=== PATIENT | female | born 1955 | race Hispanic/Latino ===

== ENCOUNTER 2019-02-26 13:54 | Emergency (ER) | payer OTHER, MEDICAID, SELFPAY ==
[2019-02-26 13:58] VITALS: BP 156/98; PULSE 106; RESP 18; O2SAT 100; BMI 35.3
--- NOTE | 2019-02-26 19:41 | ED.SKABFB ---
HPI - Skin/Abscess/Foreign Bdy General Chief complaint: Skin/Abscess/Foreign Body Stated complaint: LEFT ARM SWELLING BEE STING Time Seen by Provider: 02/26/19 13:55 Source: patient Mode of arrival: ambulatory Limitations: no limitations History of Present Illness HPI narrative: 63-year-old female nonsmoker is otherwise healthy and presents with a chief complaint of left forearm swelling and redness in the aftermath of a bee sting a day and a half ago. He her symptoms are completely isolated to the left forearm. She denies any systemic complaints such is trouble breathing or swallowing nor tongue or lip swelling. She has had no fever or chills. She denies any history of significant allergic reaction past. She has taken 1 dose of Benadryl without much in the way of help including topical Benadryl complaint: rash Onset (ago): day(s) Tetanus up to date: no Location: LUE Severity: mild Relieving factors: none Exacerbating factors: none Related Data Home Medications Medication Instructions Recorded Confirmed diphenhydramine HCl [Benadryl 25 mg PO Q6HP PRN #0 03/15/17 Allergy] Previous Rx's Medication Instructions Recorded prednisone 20 mg PO DAILY #5 tab 02/26/19 Allergies Allergy/AdvReac Type Severity Reaction Status Date / Time adhesive Allergy Mild RASH Verified 02/26/19 14:02 tetracycline Allergy Mild RASH Verified 02/26/19 14:02 Review of Systems Constitutional Denies chills, Denies fever(s), Denies lethargy and Denies weakness Eyes Denies change in vision, Denies eye discharge, Denies irritation and Denies loss of vision ENT Ears, Nose, Mouth, and Throat: Denies change in voice, Denies neck pain and Denies sore throat Cardiovascular Denies chest pain, Denies irregular heart rhythm, Denies lightheadedness, Denies palpitations, Denies dyspnea, Denies dyspnea on exertion and Denies orthopnea Respiratory Denies cough, Denies dyspnea, Denies dyspnea on exertion and Denies wheezing Gastrointestinal Gastrointestinal: Denies abdominal pain, Denies change in bowel habits, Denies diarrhea, Denies nausea and Denies vomiting Genitourinary Denies hematuria, Denies flank pain, Denies urinary incontinence and Denies urinary urgency Musculoskeletal Denies neck pain Integumentary/Breasts Denies pruritus, Reports erythema, Reports rash, Reports skin swelling and Denies wounds Neurologic Denies confusion, Denies loss of vision and Denies weakness Psychiatric Denies anxiety, Denies confusion, Denies depression, Denies homicidal ideation and Denies suicidal ideation Endocrine Denies palpitations Hematologic/Lymphatic Denies easy bruising Allergic/Immunologic Denies wheezing PFSH Social History Smoking Status: Never smoker Social History Smoking Status: Never smoker Exam Narrative Exam Narrative: GEN: AOx3 and in mild distress EYES: Pupils are equal, round, and reactive to light and accommodation. Extraoccular muscles are intact bilaterally. There is no subconjunctival hemorrhage or exudate. ENT: No tongue lip or throat swelling, airway patent CHEST: Lungs are clear to auscultation bilaterally and free of wheezes, rales, or rhonchi. Heart rate is regular rhythm, there are no murmurs, clicks, rubs, or gallops. There is no chest wall tenderness. ABD: Abdomen is soft and nontender. There is no guarding or rebound. Bowel sounds are normal in all 4 quadrants. There is no mass or organomegaly. EXT: Full painless ROM of all extremities with no loss of sensation or strength. SKIN: Erythema and warmth to left forearm without lymphangitis induration or fluctuance. Initial Vital Signs Initial Vital Signs: Vital Signs Pulse Rate 106 H 02/26/19 13:58 Respiratory Rate 18 02/26/19 13:58 Blood Pressure 156/98 H 02/26/19 13:58 Pulse Oximetry 100 02/26/19 13:58 Course Vital Signs - 8 hr 02/26/19 13:58 Pulse Rate 106 H Respiratory Rate 18 Blood Pressure 156/98 H Pulse Oximetry 100 MDM - Skin/Abscess/Foreign Bdy MDM Narrative Medical decision making narrative: Patient with localized allergic reaction after bee sting. No airway compromise or other systemic findings. Very minimal attempts at [id number] therapies prior to arrival. Cellulitis considered but thought less likely given presentation. Patient given return precautions and her understanding is evidenced by her ability to verbalize these back. She has had her questions answered to her apparent satisfaction Discharge Plan Departure Patient Disposition: Home Clinical Impression: Insect bite of arm, left Qualifiers: Encounter type: initial encounter Qualified Code(s): S40.862A - Insect bite (nonvenomous) of left upper arm, initial encounter Discharge Date/Time: 02/26/19 14:17 Interventions: ED Discharge Assessment Last Done: 02/26/19 14:17 Instructions: DI for Insect Allergy Activity Restrictions/Additional Instructions: *You have been diagnosed with [acute local allergic reaction to insect bite] *What to do: *Take medications as directed: Please take generic Zyrtec (cetirizine) 10 mg by mouth twice daily, please note this is different than what the side of the box will say. Additionally consider the addition of histamine type 2 flynn such as Pepcid or Zantac (to be taken as directed on the side of the box). Finally I have written a prescription for prednisone *Follow up with your primary care provider in 2-3 days, call for an appointment. Let them know you were seen in the Emergency Department and that we ask that you be seen in follow up *Return to ER if you should have any new, worsening or concerning symptoms, such as [swelling of the tongue, lips or throat, difficulty breathing or other bothersome symptoms] Prescriptions: New prednisone 20 mg tablet 20 mg PO DAILY Qty: 5 RF: 0 No Action diphenhydramine HCl [Benadryl Allergy] 25 MG tablet 25 mg PO Q6HP PRNQty: 0 RF: 0
== END 2019-02-26 14:17 | disposition home or self-care (01) ==
PROVIDERS: Emergency Provider Emergency Medicine
DX: T63.441A Toxic effect of venom of bees, accidental (unintentional), initial encounter (principal)
CPT/HCPCS: 99282; 99283

== ENCOUNTER → 2022-04-08 14:10 | Outpatient (CLI) | payer OTHER, MEDICAID, SELFPAY | PROVIDERS: Referring Provider Nurse Practitioner Family; Visit Provider Nurse Practitioner Family | DX: T22.211A Burn of second degree of right forearm, initial encounter (principal) | CPT/HCPCS: 99203; 99213 ==

== ENCOUNTER → 2022-04-22 10:36 | Outpatient (CLI) | payer OTHER, MEDICAID, SELFPAY | PROVIDERS: Referring Provider Nurse Practitioner Family; Visit Provider Nurse Practitioner Family | DX: T22.211D Burn of second degree of right forearm, subsequent encounter (principal) | CPT/HCPCS: 99213 ==

== ENCOUNTER 2022-08-09 14:59 | Emergency (ER) | payer MEDICARE, MEDICAID, SELFPAY ==
[2022-08-09 15:02] VITALS: BP 199/86; PULSE 103; RESP 15; TEMP 36.4; O2SAT 100; BMI 30.9
--- NOTE | 2022-08-09 17:15 | DI.US.S_ITS ---
PROCEDURE: US BREAST LT LIMITED COMPARISON: None. INDICATIONS: QUARTER SIZED RED AREA - BLEEDING AT SIZE. LEFT LATERAL OUTER QUADRANT FINDINGS: Targeted ultrasound of the left breast 4:00 7 cm from the nipple. Just deep to the skin is an oval-shaped heterogeneous hypoechoic mass measuring 1 x 0.9 x 0.2 cm. There is suspected internal blood flow. No posterior acoustic features. Margins are smooth. Prominent left axillary lymph node with a preserved fatty hilum and no cortical thickening. IMPRESSION: Left breast superficial mass measuring 1 cm. There appears to be internal vascularity. This could represent a sebaceous cyst or skin lesion. Recommend clinical correlation. Recommend left breast mammogram. Short-term follow-up left breast ultrasound is also recommended. If the abnormality persists ultrasound-guided biopsy may be needed. Prominent left axillary lymph node without cortical thickening. This is typically benign. Preliminary results discussed with Dr. Covarrubias at time of dictation. Dictated by: Rosales De Luna M.D. on 08/09/2022 at 18:46 Approved by: Rosales De Luna M.D. on 08/09/2022 at 18:54
[2022-08-09 18:56] VITALS: BP 174/73; PULSE 96; O2SAT 100
--- NOTE | 2022-08-09 19:30 | ED.SKABFB ---
HPI - Skin/Abscess/Foreign Bdy General Chief complaint: Skin/Abscess/Foreign Body Stated complaint: cyst on lt breast, pt wants an ultrasound Time Seen by Provider: 08/09/22 17:15 Source: patient Mode of arrival: Ambulatory Limitations: no limitations History of Present Illness HPI narrative: 67-year-old female nonsmoker with history of breast cancer presents at the request of the walk-in clinic for evaluation of a cyst on her left breast, requesting ultrasound. She states that for about the past 11 days she has had this lesion on the left lower breast a few cm across that has been tender. She does have a history of breast cancer and for that reason is concerned. She was fany enough earlier today to establish a new intake appointment with a local primary care provider tomorrow. She denies any headache or blurred vision and has no chest pain or shortness of breath. She denies any nausea, vomiting or diarrhea and has no nipple discharge or drainage. Related Data Previous Rx's Medication Instructions Recorded mupirocin 2 % topical ointment 1 applic topical TID #15 grams 04/04/22 mupirocin 2 % topical ointment 1 applic topical TID #15 grams 04/04/22 Allergies Allergy/AdvReac Type Severity Reaction Status Date / Time adhesive Allergy Mild RASH Verified 08/09/22 15:02 tetracycline Allergy Mild RASH Verified 08/09/22 15:02 Review of Systems Review of Systems Narrative: GENERAL: Denies chills, fatigue, malaise, fever, sweats. HEENT: Denies sinus pain, ear pain, sore throat, difficulty swallowing, dizziness. RESPIRATORY: Denies dyspnea, cough, wheezing, hemoptysis, sputum. CARDIOVASCULAR: Denies chest pain, palpitations, orthopnea, edema, GASTROINTESTINAL: Denies nausea, vomiting, abdominal pain, diarrhea, constipation, melena. : Denies dysuria, frequency, incontinence, hematuria, urinary retention. MUSCULOSKELETAL: denies weakness, joint pain, or bony pain SKIN: See HPI NEUROLOGIC: Denies weakness, headache, numbness, change in speech, confusion, seizures, incoordination. PSYCHIATRIC: No concerning psychosocial issues. 12 point review of systems is negative except for those stated above Patient History Social History Smoking Status: Never smoker Smoking Status: Never smoker alcohol intake frequency: holidays/special occasions only Substance Use Type: does not use Exam Narrative Exam Narrative: GEN: AOx3 and in mild distress EYES: Pupils are equal, round, and reactive to light and accommodation. Extraoccular muscles are intact bilaterally. There is no subconjunctival hemorrhage or exudate. CHEST: Left breast examined with patient's permission and female nurse [employer] sales consultant at the bedside. There is a 1.5 cm erythematous lesion at the 4 o'clock position on her breast with a very small area that appears to be perhaps ulcerated, no fluctuance or induration, no nipple discharge, no other painful masses in other quadrants. Lungs are clear to auscultation bilaterally and free of wheezes, rales, or rhonchi. Heart rate is regular rhythm, there are no murmurs, clicks, rubs, or gallops. There is no chest wall tenderness. ABD: Abdomen is soft and nontender. There is no guarding or rebound. Bowel sounds are normal in all 4 quadrants. There is no mass or organomegaly. EXT: Full painless ROM of all extremities with no loss of sensation or strength. SKIN: Warm, pink, and dry. No erythema or rash Initial Vital Signs Initial Vital Signs: Vital Signs Temperature 97.5 F L 08/09/22 15:02 Pulse Rate 103 H 08/09/22 15:02 Respiratory Rate 15 08/09/22 15:02 Blood Pressure 199/86 H 08/09/22 15:02 Pulse Oximetry 100 08/09/22 15:02 Oxygen Delivery Method 08/09/22 15:02 Course Orders Ordered: ED Orders 08/09/22 17:15 US breast LT limited Stat Vital Signs Vital signs: Vital Signs - 8 hr 08/09/22 15:02 08/09/22 18:56 Temperature 97.5 F L Pulse Rate 103 H 96 H Respiratory Rate 15 Blood Pressure 199/86 H 174/73 H Pulse Oximetry 100 100 Oxygen Delivery Method Room Air Room Air MDM - Skin/Abscess/Foreign Bdy Imaging Data Breast US: Radiologist's Impression: Fany Encinas??67??F??1955 ? Allergy/Adv: adhesive, tetracycline (More??) Close Breast Ultrasound (Signed) CallRosales - 08/09/22 Launch?Image [address] [address] Ultrasound Report Signed Patient: Fany Encinas MR#: [id number] : 1955 Acct:[id number] Age/Sex: 67 / F Date of Service: 08/09/22 Loc: ED Accession Number: [id number] ?? Procedure: US breast LT limited Ordering Provider: Ezequiel Covarrubias D.O. PROCEDURE: US BREAST LT LIMITED ? COMPARISON: None. ? INDICATIONS: QUARTER SIZED RED AREA - BLEEDING AT SIZE. LEFT LATERAL OUTER QUADRANT ? FINDINGS: Targeted ultrasound of the left breast 4:00 7 cm from the nipple.? Just deep to the skin is an oval-shaped heterogeneous hypoechoic mass measuring 1 x 0.9 x 0.2 cm. There is suspected internal blood flow.? No posterior acoustic features.? Margins are smooth. ? Prominent left axillary lymph node with a preserved fatty hilum and no cortical thickening. ? IMPRESSION: Left breast superficial mass measuring 1 cm.? There appears to be internal vascularity.? This could represent a sebaceous cyst or skin lesion. ? Recommend clinical correlation.? Recommend left breast mammogram.? Short-term follow-up left breast ultrasound is also recommended.? If the abnormality persists ultrasound-guided biopsy may be needed. ? Prominent left axillary lymph node without cortical thickening.? This is typically benign. ? Preliminary results discussed with Dr. Covarrubias at time of dictation.? ? Dictated by: Rosales De Luna M.D. on 08/09/2022 at 18:46 ? ? MDM Narrative Medical decision making narrative: [67-year-old female with history of right-sided breast cancer presents with a lesion/mass on her left breast for the past 11 days] Multiple etiologies for patient's symptoms considered including, but not limited to: [Cyst, abscess, breast cancer versus other Prior Charts reviewed: Including prior emergency department visits Imaging reviewed: See above Consultations: Discussion directly with radiology regarding concerning elements of ultrasound and his recommendation to obtain outpatient mammogram Patient's symptoms improved over duration of stay with above-stated therapies. Findings and discharge diagnosis discussed with patient/family followed by verbalization of understanding Return precautions discussed with patient/family whom verbalize understanding of diagnosis and plan Discharge Plan Departure Patient Disposition: Home Clinical Impression: Breast lesion Instructions: DI for Breast Mass -- Uncertain Cause Activity Restrictions/Additional Instructions: *You have been diagnosed with [left breast mass of uncertain cause. As we discussed your ultrasound has a slightly atypical appearance and radiology recommends a mammogram that can be ordered by your primary care provider] *What to do: *Please continue to take your regular medications as directed. *Please follow up with your primary care provider tomorrow as planned. I will electronically transmitted a copy of today's note *Return to Emergency Department if you should have any new, worsening or concerning symptoms, such as [fever greater than 101 F, shaking chills, worsening pain, persistent vomiting or other bothersome symptoms] Prescriptions: No Action mupirocin 2 % ointment 1 applic topical TID Qty: 15 0RF mupirocin 2 % ointment 1 applic topical TID Qty: 15 0RF Referrals: Miscellaneous,Doctor, [Primary Care Provider] - Abel Huggins DO [Physician] - Stand Alone Forms: Patient Portal/API
--- NOTE | 2022-08-09 19:45 | PC.NURSE ---
Breast exam deferred to
[2022-08-09 19:53] VITALS: BP 168/81; PULSE 89; RESP 20; O2SAT 99
== END 2022-08-09 19:58 | disposition home or self-care (01) ==
PROVIDERS: Emergency Provider Emergency Medicine
DX: N63.23 Unspecified lump in the left breast, lower outer quadrant (principal); Z85.3 Personal history of malignant neoplasm of breast
CPT/HCPCS: 76642; 99281; 99282

== ENCOUNTER → 2022-08-10 14:11 | Outpatient (CLI) | payer MEDICARE, MEDICAID, SELFPAY ==
[2022-08-10 15:02] LABS: Add Manual Diff / Slide Review NO; Basophils Absolute Auto 0 /uL (0-100); Basophils Percent Auto 0.4 % (0-2); Eosinophils Absolute Auto 0 /uL (0-450); Eosinophils Percent Auto 0.5 % (2-4); Hematocrit 42.3 % (36-46); Hemoglobin 14.2 g/dL (12.0-16.0); Lymphocytes Absolute Auto 1500 /uL (1100-4500); Lymphocytes Percent Auto 18.3 % (25-40); Mean Corpuscular HGB Conc 33.7 % (30-36); Mean Corpuscular Hemoglobin 29.6 PG (26-34); Mean Corpuscular Volume 87.9 fL (80-100); Monocytes Absolute Auto 400 /uL (0-900); Monocytes Percent Auto 4.9 % (3-14); Neutrophils Absolute Auto 6200 /uL (1500-7000); Neutrophils Percent Auto 75.9 % (50-75); Platelet Count 229 X10^3/uL (150-400); Red Blood Cell Count 4.81 X10^6/uL (4.0-5.2); Red Cell Distribution Width 15.5 % (11.6-14.8); White Blood Cell Count 8.2 X10^3/uL (4.5-11.0)
[2022-08-10 15:14] LABS: Hemoglobin A1C% w Est Avg Glu 6.2 % (4.0-6.0)
[2022-08-10 15:21] LABS: Alanine Aminotransferase 30 IU/L (<35); Albumin 4.7 g/dL (3.5-5.0); Albumin Globulin Ratio 1.7 (1.0-2.8); Alkaline Phosphatase 122 U/L (38-126); Aspartate Aminotransferase 30 IU/L (14-36); BUN Creatinine Ratio 20.4 (6-22); Bilirubin Total 0.9 mg/dL (0.2-1.3); Blood Urea Nitrogen 11 mg/dL (7-17); Calcium 9.5 mg/dL (8.4-10.2); Carbon Dioxide 26 mmol/L (22-32); Chloride 102 mmol/L (98-107); Cholesterol 216 mg/dL (140-199); Estimated Glomerular Filt Rate > 60 mL/min (>60); Globulin 2.7 g/dL (1.7-4.1); Glucose 83 mg/dL (80-110); HDL Cholesterol 68 mg/dL (40-60); HEMOLYSIS < 15 (0-50); LDL Cholesterol Calculated 121 mg/dL (<100); Potassium 3.9 mmol/L (3.4-5.1); Sodium 138 mmol/L (137-145); Total Protein 7.4 g/dL (6.3-8.2); Triglycerides 135 mg/dL (35-150)
== END ==
PROVIDERS: PCP Family Medicine; Referring Provider Family Medicine; Visit Provider Family Medicine
DX: R03.0 Elevated blood-pressure reading, without diagnosis of hypertension (principal); R73.02 Impaired glucose tolerance (oral)
CPT/HCPCS: 36415; 80053; 80061; 83036; 85025

== ENCOUNTER → 2022-08-16 09:37 | Outpatient (CLI) | payer MEDICARE, MEDICAID, SELFPAY ==
--- NOTE | 2022-08-16 09:41 | DI.MG.S_ITS ---
UNILATERAL LEFT DIGITAL DIAGNOSTIC MAMMOGRAM 3D/2D POST MASTECTOMY: 08/16/2022 CLINICAL: Left mass. Comparison is made to exams dated: 08/09/2022 ultrasound, 03/30/2017 mammogram, and 03/04/2015 mammogram - [facility]. There are scattered areas of fibroglandular density in the left breast (category b / 25%-50% glandular tissue). There are benign appearing coarse dystrophic calcifications in the left breast. No other significant masses, calcifications, or other findings are seen in the breast. IMPRESSION: PROBABLY BENIGN There is no abnormality seen in the left breast to correspond with the area of clinical concern, palpable abnormality, and skin lesion indicated by triangular marker in the lower outer quadrant. This correlates with recently evaluated skin lesion seen on comparison ultrasound dated 08/09/2022 which is reported to be improving per patient. This is a probably benign finding. A follow-up left mammogram and an ultrasound in 3 months is recommended to document resolution. Findings and recommendations were conveyed to the patient during today's evaluation. This exam was interpreted at Station ID: [id number]. NOTE: For mammograms, a report in lay terms will be sent to the patient. Approximately 15% of breast malignancies will not be visualized mammographically. In the management of a palpable breast mass, a negative mammogram must not discourage biopsy of a clinically suspicious lesion. Electronically Signed By: Scott Pierce M.D. at/:08/16/2022 10:58:27 copy to: JENNY MAX letter sent: Followup Recommended ACR BI-RADS Category 3: Probably benign [id number]
== END ==
PROVIDERS: PCP Family Medicine; Referring Provider Family Medicine; Visit Provider Family Medicine
DX: N63.20 Unspecified lump in the left breast, unspecified quadrant (principal); R92.1 Mammographic calcification found on diagnostic imaging of breast
CPT/HCPCS: 77065; G0279